=== PATIENT | female | born 1980 | race Caucasian/White ===

== ENCOUNTER 2016-10-02 14:58 | Emergency (ER) | payer OTHER ==
[2016-10-02 15:37] VITALS: BP 134/86; PULSE 76; RESP 18; TEMP 98.4; O2SAT 97
--- NOTE | 2016-10-02 16:01 | DX ---
Left Ankle, Three Views History: Pain, post trauma. Fell on ice. Findings: No fracture, effusion, or dislocation is identified. Subtle evidence for loosening defect i nvolving the medial talar dome that may indicate underlying chronic osteochondritis. Impression: Nothing acute identified.
--- NOTE | 2016-10-02 16:10 | UCPHY ---
H & P Patient Type: Established Smoking Status: Never smoked Time Seen by Provider: 10/02/16 16:00 HPI/ROS: HPI: 35-year-old female presents to urgent care with chief concern left anterior ankle pain and swelling that onset suddenly at 2:00 p.m. when she slipped on the ice on her deck, landing on her left foot. Difficulty weight- bearing because of pain in the left anterior ankle. Denies weakness, numbness, or tingling of the left ankle or foot. Reports decreased range of motion. Denies other injury at time of incident including striking her head, neck, or back pain. No dizziness, no headache, no visual changes, no nausea or vomiting. ROS:10 point review of systems is negative other than as stated in HPI (Ruth Peterson) Physical Exam: Vital signs stable, reviewed by me General: Awake, alert, calm, cooperative. No acute distress. Head: Normalocephalic. Atraumatic. EENT: PERRLA. EOMI. Neck: Supple, nontender. No midline tenderness, full ROM. Respiratory: Breathing unlabored. CV: Chest nontender, atraumatic. Distal pulses 2+. Brisk cap refill all extremities. GI: Deferred Neuro: Alert. Oriented x 3. Sensation intact all extremities. Skin: Skin warm, dry, intact. No ecchymosis, abrasions, or lacerations. Extremities: No discomfort to palpation of the left hip, knee, leg, or foot. Full ROM. Tenderness, mild swelling and mild ecchymosis to left anterior ankle. Achilles intact without tenderness. Negative Jones test. No discomfort noted to the lateral, medial, or posterior malleolus. Negative calcaneal squeeze test. Negative midfoot torsion. No tenderness base of the 5th metatarsal. No syndesmosis. No pain to the proximal tibia or fibula. Toes without discomfort and with full ROM. Dorsiflexion, plantar flexion, inversion , eversion, rotation. Strength is 4+ . (Ruth Peterson) Constitutional: Initial Vital Signs Temperature (C) 36.9 C 10/02/16 15:35 Heart Rate 76 10/02/16 15:35 Respiratory Rate 18 10/02/16 15:35 Blood Pressure 134/86 H 10/02/16 15:35 O2 Sat (%) 97 10/02/16 15:35 O2 Delivery Mode Room Air Allergies/Adverse Reactions: erythromycin base Allergy (Intermediate, Verified 10/02/16 15:30) Hives surgical tape Allergy (Uncoded 10/02/16 15:30) Home Medications: Medication Instructions Recorded Multivitamin with Minerals 12/19/13 [Multiple Vitamin] Metformin HCl 10/02/16 Medical Decision Making - Diagnostics Imaging: Left Ankle, Three Views History: Pain, post trauma. Fell on ice. Findings: No fracture, effusion, or dislocation is identified. Subtle evidence for loosening defect involving the medial talar dome that may indicate underlying chronic osteochondritis. Impression: Nothing acute identified. Dictated By: Andrea Goodrich MD (Ruth Peterson) ED Course/Re-evaluation: X-ray negative for fracture. Patient placed in Alex wrap, stirrup splint, and instructed in use of crutches. Provided crutches. Neurovascular status intact after application of Alex wrap and stirrup splint. Referred to orthopedist as she has no primary care provider. (Ruth Peterson) Differential Diagnosis: Differential diagnosis includes but is not limited to dislocation, fracture, sprain (Ruth Peterson) Other Provider: The patient was evaluated and managed by the nurse practitioner, Ruth Peterson.. My co-signature indicates that I have reviewed this chart and I agree with the findings and plan of care as documented. I am the secondary supervising physician. (Abby Cook) Departure - Departure Disposition: Home, Routine, Self-Care Clinical Impression: Ankle sprain Condition: Good Instructions: Ankle Sprain (ED), Ankle Stirrup Splint (ED) Additional Instructions: Plan: Ice and elevate for swelling. Crutches as needed to accommodate non painful ambulation Wear Alex wrap for the next 5 days. Wear the ankle stirrup brace for one week, then if continued pain, wear for a second week. Follow up as directed with orthopedist in your paperwork by next week Early range of motion exercises and strengthening as tolerated. Ibuprofen 400-600 mg every 6 hours as needed-always take with food, stay well hydrated while you use ibuprofen Referrals: NONE *PRIMARY CARE P,. [Primary Care Provider] - As per Instructions Belen Webb MD [Medical Doctor] - As per Instructions - PQRS PQRS Measurement: Not applicable (Ruth Peterson)
== END 2016-10-02 16:33 | disposition home or self-care (01) ==
LOC: CED 14:58
PROC: 2W3RX1Z Immobilization of Left Lower Leg using Splint (ICD-10-PCS; principal; 2016-10-02)
DX: S93.402A Sprain of unspecified ligament of left ankle, initial encounter (principal); W00.0XXA Fall on same level due to ice and snow, initial encounter
CPT/HCPCS: 29515-PO; 73610-PO; 99214-PO; G0463-PO; L4350

== ENCOUNTER 2017-02-28 11:19 | Emergency (ER) | payer OTHER ==
[2017-02-28 11:28] VITALS: TEMP 98.1; O2SAT 99
[2017-02-28] MEDS ORDERED: NS 1,000 ML IV ONE (11:32)
--- NOTE | 2017-02-28 11:50 | EDPHY ---
H & P Stated Complaint: PT. c/o rlq to suprapubic area,cramping since alfonso. HX of cysts Time Seen by Provider: 02/28/17 11:31 HPI/ROS: This patient complains of right lower quadrant abdominal pain that started 2 days ago gradual in onset and is described as pulling aching in nature peak intensity 5/10, currently 4/10. She describes the symptoms as feeling similar to ruptured ovarian cyst she had the past. Her recent history is notable for positive urine test in by dates she thinks she is 6 weeks . She reports perhaps slight worsening of the symptoms with movement but no other exacerbating or alleviating factors and she has not taken any medications for the pain. She came in this morning because she and her hope to go camping, but she went to have her pain evaluated prior to leaving [facility]. She has not had an OB appointment yet with this . This is her 1st . ROS: No fevers chills or other constitutional symptoms HEENT: No complaints Pulmonary: No cough shortness of breath Cardiovascular: No lightheadedness or chest pain. GI: No upper belly pain. She reports some nausea but no vomiting. She maintains good appetite. : No urinary symptoms. No vaginal bleeding or vaginal discharge. Last menstrual period 6 weeks ago. Endocrine: No polyuria or polydipsia. No other complaints. Integumentary: No skin rash 10 point ROS is otherwise negative. Source: Patient Exam Limitations: No limitations - Personal History LMP (Females 10-55): - Medical/Surgical History PMH: History of large fallopian tube cyst that required removal of the left fallopian tube. This was done by Dr. Magalis Kim-Ob Hx Asthma: No Hx Chronic Respiratory Disease: No Hx Diabetes: No Hx Cardiac Disease: No Hx Renal Disease: No Hx Cirrhosis: No Hx Alcoholism: No Hx HIV/AIDS: No Hx Splenectomy or Spleen Trauma: No Other PMH: med hx-seasonal and environmental allergies, PRE-DIABETIC. surg - fallopian tube cyst removed - Family History Significant Family History: No pertinent family hx - Social History Smoking Status: Never smoked Alcohol Use: None Drug Use: None - Physical Exam Exam: General Appearance: Alert, no distress. Eyes: Pupils equal and round no pallor or injection. ENT, Mouth: Mucous membranes moist. Respiratory: There are no retractions, lungs are clear to auscultation. Cardiovascular: Regular rate and rhythm. Gastrointestinal: Normoactive, soft, mild right lower quadrant tenderness with no guarding or rebound. Back: No CVA tenderness Neurological: GCS 15 with no sensory or motor deficits Skin: Warm and dry, no rashes. Musculoskeletal: Neck is supple nontender. Extremities are symmetrical, full range of motion. Psychiatric: Mood and affect normal DIFFERENTIAL DIAGNOSIS: After history and physical exam differential diagnosis was considered for ovarian cyst, ectopic , constipation, appendicitis, urinary tract infection Constitutional: Initial Vital Signs Temperature (C) 36.7 C 02/28/17 11:23 Heart Rate 76 02/28/17 11:23 Respiratory Rate 16 02/28/17 11:23 Blood Pressure 127/76 H 02/28/17 11:23 O2 Sat (%) 99 02/28/17 11:23 O2 Delivery Mode Room Air Allergies/Adverse Reactions: erythromycin base Allergy (Intermediate, Verified 02/28/17 11:22) Hives surgical tape Allergy (Uncoded 02/28/17 11:22) Home Medications: Medication Instructions Recorded Multivitamin with Minerals 12/19/13 [Multiple Vitamin] Cephalexin [Keflex (*)] 500 mg PO TID #15 cap 02/28/17 Medical Decision Making - Diagnostics Imaging Results: Imaging Impressions Obstetrics Ultrasound 02/28/17 11:35 Impression: Normal IUP at 5 weeks 6 days with ultrasound SUKHDEEP 10/25/2017. Results called to Dr. Lencho Jones. Abdomen Ultrasound 02/28/17 12:32 Impression: No indirect sonographic evidence for appendicitis. If clinical concern for appendicitis remains high, then consider MRI (without contrast) in this early patient. Results called to Lencho Jones M.D.. Imaging: Discussed imaging studies w/ second helper Radiologist ED Course/Re-evaluation: IV normal saline bolus x1 L Patient declined analgesics. I counseled patient regarding her IUP. I think that her lower belly discomfort is attributable to cystitis. We ruled out ectopic . The radiologist was unable to visualize the patient's appendix, but clinically I do not think she has appendicitis given lack of fever, I vomiting, or other significant findings. She also has a normal CBC. We treated with 1st dose of Keflex for cystitis. The patient will follow up with her OBGYN but understands need to return if she has any significant worsening of symptoms despite the treatment plan. - Data Points Laboratory Results: Laboratory Results 02/28/17 11:40 02/28/17 11:40 02/28/17 02/28/17 02/28/17 12:03 11:40 11:40 WBC 7.51 10^3/uL 10^3/uL (3.80-9.50) RBC 5.00 10^6/uL 10^6/uL (4.18-5.33) Hgb 15.3 g/dL g/dL (12.6-16.3) Hct 43.4 % % (38.0-47.0) MCV 86.8 fL fL (81.5-99.8) MCH 30.6 pg pg (27.9-34.1) MCHC 35.3 g/dL g/dL (32.4-36.7) RDW 13.4 % % (11.5-15.2) Plt Count 244 10^3/uL 10^3/uL (150-400) MPV 10.7 fL fL (8.7-11.7) Neut % (Auto) 55.0 % % (39.3-74.2) Lymph % (Auto) 36.0 % % (15.0-45.0) Moca % (Auto) 6.8 % % (4.5-13.0) Eos % (Auto) 1.5 % % (0.6-7.6) Baso % (Auto) 0.3 % % (0.3-1.7) Nucleat RBC Rel Count 0.0 % % (0.0-0.2) Absolute Neuts (auto) 4.14 10^3/uL 10^3/uL (1.70-6.50) Absolute Lymphs (auto) 2.70 10^3/uL 10^3/uL (1.00-3.00) Absolute Monos (auto) 0.51 10^3/uL 10^3/uL (0.30-0.80) Absolute Eos (auto) 0.11 10^3/uL 10^3/uL (0.03-0.40) Absolute Basos (auto) 0.02 10^3/uL 10^3/uL (0.02-0.10) Absolute Nucleated RBC 0.00 10^3/uL 10^3/uL (0-0.01) Immature Gran % 0.4 % % (0.0-1.1) Immature Gran # 0.03 10^3/uL 10^3/uL (0.00-0.10) Sodium 140 mEq/L mEq/L (134-144) Potassium 4.1 mEq/L mEq/L (3.5-5.2) Chloride 108 mEq/L mEq/L (97-110) Carbon Dioxide 18 mEq/l L mEq/l (22-31) Anion Gap 14 mEq/L mEq/L (8-16) BUN 8 mg/dL mg/dL (7-23) Creatinine 0.6 mg/dL mg/dL (0.6-1.0) Estimated GFR > 60 Glucose 88 mg/dL mg/dL (70-100) Calcium 9.3 mg/dL mg/dL (8.5-10.4) Beta HCG, Quant 66038.00 mIU/mL H mIU/mL (0-4.83) Urine Color YELLOW Urine Appearance CLEAR Urine pH 6.5 (5.0-7.5) Ur Specific [place] 1.010 (1.002-1.030) Urine Protein NEGATIVE (NEGATIVE) Urine Ketones NEGATIVE (NEGATIVE) Urine Blood NEGATIVE (NEGATIVE) Urine Nitrate NEGATIVE (NEGATIVE) Urine Bilirubin NEGATIVE (NEGATIVE) Urine Urobilinogen 0.2 EU EU (0.2-1.0) Ur Leukocyte Esterase 2+ H (NEGATIVE) Urine RBC 3-5 /hpf H /hpf (0-3) Urine WBC 10-15 /hpf H /hpf (0-3) Ur Epithelial Cells 2+ /lpf H /lpf (NONE-1+) Urine Bacteria 2+ /hpf H /hpf (NONE SEEN) Urine Yeast 1+ /hpf H /hpf (NONE SEEN) Urine Glucose NEGATIVE (NEGATIVE) Medications Given: Discontinued Medications Cephalexin HCl (Keflex) 500 mg PO EDNOW ONE PRN Reason: Protocol Stop: 02/28/17 14:00 Last Admin: 02/28/17 14:33 Dose: 500 mg Sodium Chloride (Ns) 1,000 mls @ 0 mls/hr IV ONCE ONE; Wide Open PRN Reason: Protocol Stop: 02/28/17 11:33 Last Admin: 02/28/17 12:00 Dose: 1,000 mls Departure - Departure Disposition: Home, Routine, Self-Care Clinical Impression: Cystitis, Normal intrauterine on ultrasound in first trimester, Lower abdominal pain Condition: Good Instructions: (ED), Urinary Tract Infection in Women (ED), Acute Abdominal Pain (ED) Additional Instructions: Diagnoses: 1. Bladder infection 2. Normal 6 week 3. Lower abdominal pain Plan: Drink plenty fluids Tylenol for discomfort if needed Keflex antibiotic Follow up with your OBGYN to regularly scheduled appointment Return for any significant worsening despite treatment plan Referrals: NONE *PRIMARY CARE P,. [Primary Care Provider] - As per Instructions Prescriptions: Cephalexin [Keflex (*)] 500 mg PO TID #15 cap
[2017-02-28 11:54] LABS: % IMMATURE GRANULYOCYTES 0.4 % (0.0-1.1); ABSOLUTE IMMATURE GRANULOCYTES 0.03 10^3/uL (0.00-0.10); ADD DIFF? NO; ADD MORPH? NO; ADD SCAN? NO; ATYPICAL LYMPHOCYTE FLAG 20 (0-99); FRAGMENT RBC FLAG 0 (0-99); HEMATOCRIT 43.4 % (38.0-47.0); HEMOGLOBIN 15.3 g/dL (12.6-16.3); LEFT SHIFT FLG 0 (0-99); LIPEMIA HEMOLYSIS FLAG 90 (0-99); MEAN CELL HEMOGLOBIN 30.6 pg (27.9-34.1); MEAN CELL HEMOGLOBIN CONCENTR. 35.3 g/dL (32.4-36.7); MEAN CELL VOLUME 86.8 fL (81.5-99.8); MEAN PLATELET VOLUME 10.7 fL (8.7-11.7); PLATELET CLUMPS FLAG 10 (0-99); PLATELET COUNT 244 10^3/uL (150-400); RED CELL DISTRIBUTION WIDTH 13.4 % (11.5-15.2)
[2017-02-28 12:05] LABS: ANION GAP 14 mEq/L (8-16); CALCIUM 9.3 mg/dL (8.5-10.4); CARBON DIOXIDE 18 mEq/l (22-31); CHLORIDE 108 mEq/L (97-110); CREATININE 0.6 mg/dL (0.6-1.0); GLOMERULAR FILTRATION RATE > 60; GLUCOSE 88 mg/dL (70-100); POTASSIUM 4.1 mEq/L (3.5-5.2); SODIUM 140 mEq/L (134-144)
[2017-02-28 12:08] LABS: COLOR YELLOW; LEUKOCYTE ESTERASE,URINE 2+ (NEGATIVE); NITRITE,URINE NEGATIVE (NEGATIVE); PH,URINE 6.5 (5.0-7.5)
[2017-02-28 12:21] LABS: BACTERIA 2+ /hpf (NONE SEEN); YEAST 1+ /hpf (NONE SEEN)
[2017-02-28] MEDS ORDERED: CEPHALEXIN 500 MG CAP PO ONE (13:59)
[2017-02-28 14:37] VITALS: BP 110/84; PULSE 80; RESP 14
== END 2017-02-28 14:36 | disposition home or self-care (01) ==
LOC: CED 11:19
DX: O23.11 Infections of bladder in pregnancy, first trimester (principal); E86.9 Volume depletion, unspecified; B96.89 Other specified bacterial agents as the cause of diseases classified elsewhere; Z3A.01 Less than 8 weeks gestation of pregnancy
CPT/HCPCS: 76705-PO; 80048-PO; 81003-PO; 81015-PO; 84702-PO; 85025-PO